=== PATIENT | female | born 1995 | race African-American/Black ===

== ENCOUNTER 2017-06-25 20:36 | Emergency (ER) | payer SELFPAY ==
[~2017-06-25] VITALS: Ht 147.3 cm; Wt 80.5 kg
[2017-06-25] MEDS ORDERED: ACETAMINOPHEN 325MG TABLET PO ONE (23:00)
[2017-06-25 23:07] LABS: CLARITY URINE CLEAR (CLEAR); COLOR URINE YELLOW (YELLOW); KETONES URINE NEGATIVE (NEGATIVE); LEUKOCYTE ESTERASE URINE 1+ (NEGATIVE); NITRITE URINE NEGATIVE (NEGATIVE); OCCULT BLOOD URINE TRACE (NEGATIVE); PH URINE 6.5 (4.5-8.0); PROTEIN URINE NEGATIVE (NEGATIVE); SPECIFIC GRAVITY URINE 1.013 (1.005-1.030); UROBILINOGEN URINE 0.2 E.U./dL (0.2-1.0)
[2017-06-26 00:51] LABS: BASOPHILS % 0.3 % (0.0-2.0); EOSINOPHILS % 0.6 % (0.0-5.0); HEMATOCRIT. 35.5 % (36.0-48.0); HEMOGLOBIN. 11.6 g/dL (12.0-16.0); LYMPHOCYTES % 22.6 % (20.0-50.0); MEAN CORPUSCULAR HEMOGLOBIN 26.2 pg (28.0-32.0); MEAN CORPUSCULAR VOLUME 80.1 fL (81.0-99.0); MEAN PLATELET VOLUME 6.4 fl (7.4-10.4); MONOCYTES % 5.3 % (2.0-8.0); NEUTROPHILS % 71.2 % (40.0-76.0); PLATELET 430 x1000/uL (130-400); RED BLOOD CELL COUNT 4.43 mill/uL (4.2-5.4)
[2017-06-26 01:16] LABS: CHLORIDE 105 mEq/L (98-107)
[2017-06-26 01:34] LABS: B-HCG QUANTITATIVE 2354 mIU/mL (<3)
[2017-06-26 02:11] VITALS: BP 128/81
== END 2017-06-26 02:15 | disposition home or self-care (01) ==
LOC: ER 23:17
DX: O20.0 Threatened abortion (principal); O23.41 Unspecified infection of urinary tract in pregnancy, first trimester; N39.0 Urinary tract infection, site not specified; Z3A.00 Weeks of gestation of pregnancy not specified
CPT/HCPCS: 36415; 76801; 76817; 80053; 81003; 84702; 85025; 86850; 86900; 86901; 99285; Z7610

== ENCOUNTER 2017-09-19 17:28 | Emergency (ER) | payer MEDICAID ==
[~2017-09-19] VITALS: Ht 160 cm; Wt 79.0 kg
[2017-09-19] MEDS ORDERED: SODIUM CHLORIDE 0.9% 1,000 ML IV ONE (18:00)
[2017-09-19] MEDS ORDERED: ACETAMINOPHEN 325MG TABLET PO ONE (18:00)
[2017-09-19 18:05] LABS: BASOPHILS % 0.2 % (0.0-2.0); EOSINOPHILS % 0.2 % (0.0-5.0); HEMATOCRIT. 34.9 % (36.0-48.0); HEMOGLOBIN. 11.9 g/dL (12.0-16.0); LYMPHOCYTES % 8.1 % (20.0-50.0); MEAN CORPUSCULAR HEMOGLOBIN 28.3 pg (28.0-32.0); MEAN PLATELET VOLUME 6.4 fl (7.4-10.4); MONOCYTES % 6.1 % (2.0-8.0); NEUTROPHILS % 85.4 % (40.0-76.0); PLATELET 397 x1000/uL (130-400); RED BLOOD CELL COUNT 4.21 mill/uL (4.2-5.4)
[2017-09-19 18:12] LABS: CHLORIDE 103 mEq/L (98-107)
[2017-09-19 18:36] LABS: B-HCG QUANTITATIVE 19599 mIU/mL (<3)
[2017-09-19 18:37] LABS: CLARITY URINE CLEAR (CLEAR); COLOR URINE YELLOW (YELLOW); KETONES URINE 3+ (NEGATIVE); LEUKOCYTE ESTERASE URINE TRACE (NEGATIVE); NITRITE URINE NEGATIVE (NEGATIVE); OCCULT BLOOD URINE 1+ (NEGATIVE); PH URINE 6.5 (4.5-8.0); PROTEIN URINE NEGATIVE (NEGATIVE); SPECIFIC GRAVITY URINE 1.017 (1.005-1.030)
[2017-09-19 21:26] VITALS: BP 110/67
== END 2017-09-19 21:33 | disposition home or self-care (01) ==
LOC: ER 18:48
DX: O23.40 Unspecified infection of urinary tract in pregnancy, unspecified trimester (principal); J06.9 Acute upper respiratory infection, unspecified; O26.899 Other specified pregnancy related conditions, unspecified trimester; Z3A.00 Weeks of gestation of pregnancy not specified
CPT/HCPCS: 36415; 80053; 81003; 81025; 83690; 84702; 85025; 87070; 87430; 96360; 96361; 99285; J7030